=== PATIENT | male | born 1975 | race American Indian/Alaskan Native ===

== ENCOUNTER 2016-07-04 21:17 | Emergency (ER) | payer OTHER ==
[2016-07-04 21:55] VITALS: BP 144/89
[2016-07-05] MEDS ORDERED: FUL-GLO OP ONE (03:43)
[2016-07-05] MEDS ORDERED: BSS 1 DROPS, TETRACAINE 0.5% 1 DROPS, FUL-GLO 1 MG OD ONE (03:45)
--- NOTE | 2016-07-05 03:58 | Emergency Department Report ---
Eye Injury/Foreign Body - HPI Eye Location: Right Severity: Mild Tetanus Status: Up to Date Eye Symptoms: Eye Pain: Yes, Blurred Vision: No, Eye Redness: Yes, Contact Lens Use: No, Photophobia: No Other History: 41-year-old -[place] male with a past medical history of hypertension comes in complaining of right eye irritation since about 4:30 yesterday. Patient reports he possibly got dust in his eyes. He reports he was helping moving and got dust and now he has pain in the eye. He feels like his eye needs to be flushed. ED Review of Systems ROS: Stated complaint: POSS CHEMICAL IN R EYE Other details as noted in HPI Constitutional: denies: chills, fever Eyes: eye pain. denies: vision change ENT: denies: ear pain, throat pain Respiratory: denies: cough, shortness of breath, wheezing Cardiovascular: denies: chest pain, palpitations Endocrine: no symptoms reported ED Past Medical Hx - Past Medical History Previous Medical History?: Yes Hx Hypertension: Yes - Surgical History Past Surgical History?: No - Social History Smoking Status: Current Every Day Smoker Substance Use Type: None - Medications Home Medications: Home Medications Medication Instructions Recorded Confirmed Last Taken Type Ofloxacin 0.3% [Floxin Otic] 2 drop OD Q2H #1 bottle 07/05/16 Unknown Rx Eye Injury Exam - Exam General: Vital signs noted. No distress. Alert and acting appropriately. Patient has a corneal abrasion about 11:00 more central to the pupil. ED Course Vital Signs 07/04/16 21:25 Temperature 99.1 F Pulse Rate 82 Respiratory 16 Rate Blood Pressure 144/89 [Right] O2 Sat by Pulse 98 Oximetry ED Medical Decision Making - Medical Decision Making Patient's been evaluated by this provider fast track. Fluorescein eye exam was done. Notice a corneal abrasion discussed the patient I'll place him on moxifloxacin antibiotic for the corneal abrasion and that he needs to follow-up with ophthalmology in the next 24-48 hours. Patient verbalized understanding Critical care attestation.: If time is entered above; I have spent that time in minutes in the direct care of this critically ill patient, excluding procedure time. ED Disposition Clinical Impression: Corneal abrasion, right Qualifiers: Encounter type: initial encounter Qualified Code(s): S05.01XA - Injury of conjunctiva and corneal abrasion without foreign body, right eye, initial encounter Disposition: DISCHARGED TO HOME OR SELFCARE Is pt being admited?: No Does the pt Need Aspirin: No Condition: Stable Instructions: Corneal Abrasion (ED) Additional Instructions: Please use eyedrops as prescribed. You can take Tylenol and Motrin for pain. It is very important for you to follow up with an woolen suiting shrinker within the next 24-72 hours. Prescriptions: Ofloxacin 0.3% [Floxin Otic] 2 drop OD Q2H #1 bottle Referrals: PRIMARY CAREMD [Primary Care Provider] - 3-5 Days MARINE KAPLAN MD [Staff Physician] - 3-5 Days Forms: Work/School Release Form(ED)
== END 2016-07-05 04:45 | disposition home or self-care (01) ==
LOC: ED 21:17
DX: S05.01XA Injury of conjunctiva and corneal abrasion without foreign body, right eye, initial encounter (principal); I10 Essential (primary) hypertension; F17.200 Nicotine dependence, unspecified, uncomplicated; X58.XXXA Exposure to other specified factors, initial encounter; Y93.89 Activity, other specified; Y99.8 Other external cause status; Y92.89 Other specified places as the place of occurrence of the external cause
CPT/HCPCS: 99282